=== PATIENT | female | born 1950 | race Caucasian/White ===

== ENCOUNTER → 2017-01-12 | Outpatient (CLI) | payer OTHER | LOC: FIMAGING 11:54 | PROVIDERS: ATTEND Nurse Practitioner Obstetrics & Gynecology | DX: Z12.31 Encounter for screening mammogram for malignant neoplasm of breast (principal) | CPT/HCPCS: G0202 ==

== ENCOUNTER 2017-04-30 14:30 | Inpatient (IN) | payer OTHER ==
[2017-04-30] MEDS ORDERED: ONDANSETRON 4 MG/2 ML VIAL ONE (14:46)
[2017-04-30] MEDS ORDERED: ONDANSETRON 4 MG/2 ML VIAL IVP ONE (14:48)
[2017-04-30] MEDS ORDERED: NS 1,000 ML IV ONE (14:50)
--- NOTE | 2017-04-30 15:00 | EDPHY ---
H & P Stated Complaint: acute onset/room spinning/dizzyness/nausea/v while vacuuming Time Seen by Provider: 04/30/17 15:00 - Personal History Current Tetanus/Diphtheria Vaccine: Unsure - Medical/Surgical History Hx Asthma: No Hx Chronic Respiratory Disease: No Hx Diabetes: No Hx Cardiac Disease: No Hx Renal Disease: No Hx Cirrhosis: No Hx Alcoholism: No Hx HIV/AIDS: No Hx Splenectomy or Spleen Trauma: No Other PMH: vertigo - Social History Smoking Status: Never smoked Constitutional: Initial Vital Signs Temperature (C) 36.3 C 04/30/17 14:35 Heart Rate 71 04/30/17 14:35 Respiratory Rate 16 04/30/17 14:35 Blood Pressure 98/75 L 04/30/17 14:35 O2 Sat (%) 96 04/30/17 14:35 O2 Delivery Mode Room Air Allergies/Adverse Reactions: No Known Allergies Allergy (Unverified 04/30/17 14:34) Home Medications: Medication Instructions Recorded Componded Hormone Cream 1 chandler TP DAILY 04/30/17 Herbals/Supplements -Info Only 1 ea PO DAILY 04/30/17 Loteprednol 0.5% [Lotemax 0.5%] 1 drops OP DAILY 04/30/17 Multivitamins [Multivitamin (*)] 1 each PO DAILY 04/30/17 Sertraline HCl [Zoloft 25mg (*)] 25 mg PO HS 04/30/17 Medical Decision Making ED Course/Re-evaluation: CHIEF COMPLAINT: Dizziness, nausea, vomiting HISTORY OF PRESENT ILLNESS: The patient is a 66 y/o female with a history of vertigo complaining of acute onset dizziness, nausea, and vomiting, onset 2.5 hours ago. While vacuuming she bent over and she immediately felt like the room was spinning. Her symptoms are mildly alleviated while lying down with her eyes closed. They become exacerbated if she moves her eyes or head. She had similar symptoms several years ago after having a viral syndrome. Denies chest pain, shortness of breath , abdominal pain, urinary or bowel complaints, headache, fever, numbness. REVIEW OF SYSTEMS: A 10 point review of systems was performed and is negative with the exception of the elements mentioned in the history of present illness. PHYSICAL EXAM: HR, BP, O2 Sat, RR. Temp noted General Appearance: Lying in bed with a towel on her head. Alert, well hydrated , appropriate, and non-toxic appearing. Head: Atraumatic without scalp tenderness or obvious injury Eyes: Pupils equal, round, reactive to light and accommodation, EOMI, no trauma , no injection. Ears: Clear bilaterally, no perforation, normal landmarks Nose: Atraumatic, no rhinorrhea, clear. Throat: Mucus membranes moist. Neck: Supple, nontender, no lymphadenopathy. Respiratory: No retractions, no distress, no wheezes, and no accessory muscle use. Lungs are clear to auscultation bilaterally. Cardiovascular: Regular rate and rhythm, no murmurs, rubs, or gallops. Good capillary refill all extremities. Gastrointestinal: Abdomen is soft, nontender, non-distended, no masses, no rebound, no guarding, no peritoneal signs. Musculoskeletal: Normal active ROM of all extremities, atraumatic. Neurological: Alert, appropriate, and interactive. Nonfocal neuro. Skin: No rashes, good turgor, no nodules on palpation. Past medical history: Vertigo Past surgical history: Denies Family history: Denies Social history: at bedside, lives in [place], works as an illustrator DIFFERENTIAL DIAGNOSIS: The differential diagnosis for the patient's dizziness included but was not limited to peripheral and central causes of vertigo, orthostatic causes including dehydration, cardiogenic and neurogenic causes, and blood loss. MEDICAL DECISION MAKING: The patient is a 66 y/o female with a history of vertigo presenting with acute onset dizziness, nausea, and vomiting, onset 2.5 hours ago after bending over while vacuuming. Her neuro exam is non-focal besides her feeling like the room is spinning around her. Her symptoms are consistent with benign paroxysmal positional vertigo. BMP ordered to ensure her electrolytes are in normal limits. 4mg IV Zofran, 1mg IV Ativan, 25mg IV Benadryl, and 1L IV NS administered. 1700: Patient's nausea is improved but she is still feeling dizzy. She will need to be admitted for further evaluation; she is comfortable with this plan. 1705: Consulted with hospitalist service, Dr. Perez accepts admission of this patient. 1735: After watching her road test I am concerned about her safety due to potential falls. However, she would like to go home despite my concerns. 1747: Patient spoke with her and would now like to be admitted. Dr. Castrejon will admit her. - Data Points Laboratory Results: Laboratory Results 04/30/17 15:05 04/30/17 15:05 Sodium 137 mEq/L mEq/L (135-145) Potassium 4.2 mEq/L mEq/L (3.5-5.2) Chloride 102 mEq/L mEq/L (97-110) Carbon Dioxide 26 mEq/l mEq/l (22-31) Anion Gap 9 mEq/L mEq/L (8-16) BUN 17 mg/dL mg/dL (7-23) Creatinine 0.7 mg/dL mg/dL (0.6-1.0) Estimated GFR > 60 Glucose 132 mg/dL H mg/dL (70-100) Calcium 9.3 mg/dL mg/dL (8.5-10.4) Medications Given: Discontinued Medications Diphenhydramine HCl (Benadryl Injection) 25 mg IVP EDNOW ONE Stop: 04/30/17 15:10 Last Admin: 04/30/17 15:21 Dose: 25 mg Sodium Chloride (Ns) 1,000 mls @ 0 mls/hr IV ONCE ONE; Wide Open PRN Reason: Protocol Stop: 04/30/17 14:51 Last Admin: 04/30/17 15:04 Dose: 1,000 mls Lorazepam (Ativan Injection) 1 mg IVP EDNOW ONE Stop: 04/30/17 15:10 Last Admin: 04/30/17 15:22 Dose: 1 mg Ondansetron HCl (Zofran) 4 mg IVP EDNOW ONE Stop: 04/30/17 14:49 Last Admin: 04/30/17 15:05 Dose: 4 mg Departure - Departure Disposition: [facility] Inpatient Acute Clinical Impression: Benign paroxysmal positional vertigo Qualifiers: Laterality: unspecified laterality Qualified Code(s): H81.10 - Benign paroxysmal vertigo, unspecified ear Condition: Fair Report Scribed for: Lauri Reyna Report Scribed by: Dayna Lorenzana Date of Report: 04/30/17 Time of Report: 15:04
[2017-04-30] MEDS ORDERED: LORazepam 2 MG/ML INJ IVP ONE (15:09)
[2017-04-30] MEDS ORDERED: ACETAMINOPHEN 325 MG TAB PO PRN (19:17)
[2017-04-30] MEDS ORDERED: PROMETHAZINE HCL 25 MG/ML INJ IVP PRN (19:17)
[2017-04-30] MEDS ORDERED: PROMETHAZINE HCL 25 MG TAB PO PRN (19:17)
[2017-04-30] MEDS ORDERED: ONDANSETRON 4 MG/2 ML VIAL IVP PRN (19:17)
--- NOTE | 2017-04-30 19:21 | PDGENHP ---
History and Physical - Chief Complaint vertigo - History of Present Illness 66 yo female with h/o prior BPPV episode 5 years ago which reportedly responded to Epleys maneuvers, presents to ED with sudden onset vertigo. She was vacuuming and bent over. When she stood upright, she had a sudden sensation of the room spinning. She denies vomiting, but endorses nausea in addition to double vision. Denies headache. She has no h/o hypertension, hyperlipidemia or tobacco use. No family history of stroke. In the ED, she was treated with anti-emetics and is admitted for further management due to concern for inability to safely ambulate. History Information - Allergies/Home Medication List Allergies/Adverse Reactions: No Known Allergies Allergy (Unverified 04/30/17 14:34) Home Medications: Componded Hormone Cream 1 chandler TP DAILY PRN 04/30/17 [Last Taken Unknown] Herbals/Supplements -Info Only 1 ea PO DAILY 04/30/17 [Last Taken Unknown] Loteprednol 0.5% [Lotemax 0.5%] 1 drops OP DAILY 04/30/17 [Last Taken 04/30/17] Multivitamins [Multivitamin (*)] 1 each PO DAILY 04/30/17 [Last Taken 04/30/17] Sertraline HCl [Zoloft 25mg (*)] 25 mg PO HS 04/30/17 [Last Taken 04/29/17] I have personally reviewed and updated: family history, medical history, social history, surgical history - Past Medical History Additional medical history: Vertigo - Surgical History Reports: no pertinent surgical hx - Family History Positive for: non-pertinent - Social History Smoking Status: Never smoked Alcohol Use: None Drug Use: None Additional social history: Lives independently Review of Systems Review of Systems: ROS: 10pt was reviewed & negative except for what was stated in HPI & below Physical Exam Physical Exam: Temp Pulse Resp BP Pulse Ox 36.9 C 94 17 136/83 H 96 04/30/17 18:35 04/30/17 18:35 04/30/17 18:35 04/30/17 18:35 04/30/17 18:35 Constitutional: no apparent distress Eyes: PERRL, other (no nystagmus) Ears, Nose, Mouth, Throat: moist mucous membranes Cardiovascular: regular rate and rhythym, no murmur, rub, or gallop Respiratory: no respiratory distress, clear to auscultation Gastrointestinal: normoactive bowel sounds, soft, non-tender abdomen Skin: warm Musculoskeletal: full muscle strength Neurologic: AAOx3, CN II-XII Intact Psychiatric: interacting appropriately Lab Data & Imaging Review 04/30/17 15:05 Sodium 137 mEq/L (135-145) 04/30/17 15:05 Potassium 4.2 mEq/L (3.5-5.2) 04/30/17 15:05 Chloride 102 mEq/L (97-110) 04/30/17 15:05 Carbon Dioxide 26 mEq/l (22-31) 04/30/17 15:05 Anion Gap 9 mEq/L (8-16) 04/30/17 15:05 BUN 17 mg/dL (7-23) 04/30/17 15:05 Creatinine 0.7 mg/dL (0.6-1.0) 04/30/17 15:05 Estimated GFR > 60 04/30/17 15:05 Glucose 132 mg/dL (70-100) H 04/30/17 15:05 Calcium 9.3 mg/dL (8.5-10.4) 04/30/17 15:05 Assessment & Plan Assessment: Benign paroxysmal positional vertigo (Acute) - admit for supportive care with anti-emetics, trial meclizine. No stroke risk factors and this seems unlikely to be a brainstem stroke, but low threshold for MRI if her symptoms do not improve. I've requested PT consult for Dale's maneuver as this helped with her prior episode. Full code Dispo - obs
[2017-04-30] MEDS: SERTRALINE HCL 25 MG TAB PO SCH (20:11)
[2017-04-30] MEDS: MECLIZINE HCL 25 MG TAB PO PRN (20:11)
[2017-04-30] MEDS: ONDANSETRON DISINTEGRATING 4 MG TAB PO PRN (20:15)
[2017-05-01] MEDS ORDERED: LOTEPREDNOL 0.5% OP SCH (09:00)
[2017-05-01] MEDS: ONDANSETRON DISINTEGRATING 4 MG TAB PO PRN ×3 (09:36→20:29)
[2017-05-01] MEDS: MECLIZINE HCL 25 MG TAB PO PRN ×2 (09:36→16:22)
[2017-05-01] MEDS: LOTEPREDNOL 0.5% OP SCH (09:37)
--- NOTE | 2017-05-01 16:21 | ASMTCMCOM ---
CM Note CM Note Notes: Pt was admitted with benign paroxysmal positional vertigo. PT has seen and cleared. Anticipate d/c home with no CM needs when medically cleared. Date Signed: 05/01/2017 04:20 PM Electronically Signed By:KEYONA Miranda
--- NOTE | 2017-05-01 18:09 | HOSPPROG ---
Hospitalist Progress Note Assessment/Plan: DIAGNOSES: -acute peripheral vertigo, severe with intractable nausea vomiting and persistent continue will symptoms suggestive of likely vestibular neuronitis * Nothing about symptoms are exam at this point to suggest central cause * No decreased hearing, tinnitus, earache or other symptoms to suggest man years -1 prior episode of identical symptoms in the past that took days to resolve the following comments are pertinent after reviewing the admission history and physical. On further review with the patient she never did have any Dale maneuvers with her prior episode. Her other episode like this episode was severe with significant vomiting and with could constantly present symptoms that slowly faded over a few days. This presentation is not suggestive of BPPV , and I do not think that that is her diagnosis at this time. At this time she is still moderately symptomatic though is able to get up on her feet and eat a little bit of food. She does not feel steady enough on her feet or good enough with resolution of nausea to trying go home this evening. PLANS: Continue symptomatic treatment of her vertigo here at this time so will need to continue treating her symptomatically here tonight, will need changed inpatient Fall risk precaution She is instructed she will not be able to drive until she has resolution of symptoms Recommend follow-up in primary care clinic or ENT Clinic within 1 week when she is able to go home safely SUBJECTIVE: Still with ongoing symptoms of vertigo and nausea but not nearly as bad as yesterday. OBJECTIVE Vitals reviewed: Stable without fever Exam: alert oriented Currently still with some nystagmus on lateral gaze, does look a little unsteady on her feet skin warm dry color ok resps not labored lungs clear BSs heart regular abd soft nondistended nontender, bowel sounds present limbs warm, no edema iv site ok Objective: Vital Signs Temp Pulse Resp BP Pulse Ox 36.4 C 70 15 134/82 H 95 05/01/17 15:31 05/01/17 15:31 05/01/17 15:31 05/01/17 15:31 05/01/17 15:31 Microbiology 05/01/17 14:48 Respiratory Panel (PCR) - Final Nasal, Sinus - Swab No Organism Detected 04/30/17 05/01/17 05/02/17 06:59 06:59 06:59 Intake Total 1000 800 Output Total 400 Balance 600 800 ICD10 Worksheet Patient Problems: Problems Problem Status Onset Benign paroxysmal positional vertigo Acute
[2017-05-01] MEDS: SERTRALINE HCL 25 MG TAB PO SCH (20:30)
[2017-05-02] MEDS: LOTEPREDNOL 0.5% OP SCH (07:21)
[2017-05-02 08:28] VITALS: BP 112/63; PULSE 68; RESP 17; TEMP 98; O2SAT 93
--- NOTE | 2017-05-02 09:37 | PDMN ---
Medical Necessity Medical necessity: Patient meets inpatient criteria per physician note and [facility] [place] M -152 Dizziness (likely vestibular neuronitis: acute severe peripheral vertigo, intractable N/V, LOS will be > 2 midnights as patient remains symptomatic, continues to have nausea and require antiemetics , is unstable on her feet/a fall risk.)
--- NOTE | 2017-05-02 18:44 | PDDCSUM ---
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 This episode was treated here symptomatic [place] with anti nausea medicines and Ativan and she has responded quite well with gradual resolution over a couple of days. At this point she still has some symptoms but is eating without vomiting, is able to get up and walk well. She still has had motion related vertigo with some mild brief change in ocular stability so that driving is not yet safe for her and we have discussed that in detail. At this point she is stable to discharge to home. She will use meclizine p.r.n.. 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 However I did instruct her that it can be hard to differentiate this from a Meniere's syndrome and I did recommend that she see an Ear Nose Throat physician to test her hearing to be sure that there is no evidence that it might be Meniere's disease. PENDING TEST RESULTS: None MEDICATION CHANGES: P.r.n. Meclizine I have also given her prescriptions for p.r.n. Zofran and Ativan which can be used sublingually if she has future severe episodes. FOLLOW-UP PLAN: She will make an appointment with Ear Nose Throat physician in the future to test her hearing as above With her primary care physician in the next 2-4 weeks Greater than 35 minutes bedside and care coordination time today
== END 2017-05-02 12:05 | disposition home or self-care (01) | DRG 149 ==
LOC: F1N 18:02 → OBSVTOIN 05-01 18:10
PROVIDERS: ADMIT Hospitalist; ATTEND Internal Medicine
DX: H81.20 Vestibular neuronitis, unspecified ear (principal)
CPT/HCPCS: 96374; 97161-GP; G0378; G8978-GP-CI; G8979-GP-CI; G8980-GP-CI; J1200; J2060; J2405

== ENCOUNTER → 2017-12-27 | Outpatient (CLI) | payer OTHER | LOC: FIMAGING 11:33 | PROVIDERS: ATTEND Family Medicine | DX: M25.511 Pain in right shoulder (principal); M25.512 Pain in left shoulder ==